=== PATIENT | male | born 1975 ===

== ENCOUNTER 2017-07-20 20:28 | Emergency (ER) | payer SELFPAY ==
[2017-07-20 20:36] VITALS: BP 123/54; PULSE 65; RESP 18; TEMP 97.1; O2SAT 99
--- NOTE | 2017-07-20 20:53 | ED PDOC ---
HPI: Male Pain Time Seen by Provider: 07/20/17 20:38 Chief Complaint (Nursing): Male Genitourinary Chief Complaint (Provider): penile irritation History Per: Patient History/Exam Limitations: no limitations Onset/Duration Of Symptoms: Days (2 weeks) Current Symptoms Are (Timing): Still Present Quality Of Discomfort: Burning Additional History Per: Patient Additional Complaint(s): 41 y/o male presents with penile irritation x 2 weeks. Patient notes itching, burning, and swelling to penile head, with associated white clumps. Denies fever, nausea/vomiting, abdominal pain, testicular pain/swelling, penile discharge, dysuria, hematuria. Patient sexually active with one partner, no reason to suspect STD. Past Medical History Reviewed: Historical Data, Nursing Documentation, Vital Signs Vital Signs: Last Vital Signs Temp 97.1 F L 07/20/17 20:33 Pulse 65 07/20/17 20:33 Resp 18 07/20/17 20:33 BP 123/54 L 07/20/17 20:33 Pulse Ox 99 07/20/17 20:33 - Medical History PMH: Diabetes - Surgical History Surgical History: No Surg Hx - Family History Family History: States: No Known Family Hx - Living Arrangements Living Arrangements: With Family - Home Medications Home Medications: Ambulatory Orders Medication Instructions Recorded Clotrimazole 1% Cream [Lotrimin 1%] 1 applic TP BID #1 tube 07/20/17 - Allergies Allergies/Adverse Reactions: Allergies Allergy/AdvReac Type Severity Reaction Status Date / Time No Known Allergies Allergy Verified 07/20/17 20:35 Review of Systems ROS Statement: Except As Marked, All Systems Reviewed And Found Negative Genitourinary Male: Positive for: Rash Physical Exam - Reviewed Nursing Documentation Reviewed: Yes Vital Signs Reviewed: Yes - Physical Exam Appears: Positive for: Well, Non-toxic, No Acute Distress Head Exam: Positive for: ATRAUMATIC, NORMAL INSPECTION, NORMOCEPHALIC Cardiovascular/Chest: Positive for: Regular Rate, Rhythm Respiratory: Positive for: Normal Breath Sounds Gastrointestinal/Abdominal: Positive for: Normal Exam Male Genital Exam: Positive for: other (uncircumsized. foreskin easily retracted: erythema, white clumpy discharge noted to glans. Exam director business systems: Milena tena). Negative for: scrotum tenderness (R), scrotum tenderness (L), testicular tenderness (R), testicular tenderness (L), urethral discharge Neurologic/Psych: Positive for: Alert, Oriented - Laboratory Results Urine dip results: Positive for: Glucose. Negative for: Leukocyte Esterase, Blood, Nitrate, Ketones - ECG O2 Sat by Pulse Oximetry: 99 - Progress ED Course And Treament: Ibuprofen PO, udip, gc/chlamydia Patient educated on findings, discharged with rx clotrimazole Educated on proper hygiene. Return precautions given. Disposition - Clinical Impression Clinical Impression: Balanitis - Patient ED Disposition Is Patient to be Admitted: No Counseled Patient/Family Regarding: Studies Performed, Diagnosis, Need For Followup, Rx Given - Disposition [facility]errals: [facility] [Outside] Disposition: Routine/Home Disposition Time: 21:05 Condition: GOOD Prescriptions: Clotrimazole 1% Cream [Lotrimin 1%] 1 applic TP BID #1 tube Instructions: Roman (ED) Forms: [employer] ([place]ian) Print Language: SYRIAC
== END 2017-07-20 21:27 | disposition home or self-care (01) ==
LOC: H.ER 20:28
DX: N48.1 Balanitis (principal); E11.9 Type 2 diabetes mellitus without complications